=== PATIENT | male | born 1990 | race Caucasian/White ===

== ENCOUNTER 2020-01-31 10:17 | Inpatient (IN) | payer SELFPAY ==
[2020-01-31] VITALS (13 sets, daily range): BP systolic 134–159; BP diastolic 84–105
[~2020-01-31] VITALS: Ht 180.3 cm; Wt 101.0 kg
[2020-01-31] MEDS ORDERED: fentaNYL/PF 50MCG/1 ML 2ML syringe IV ONE (10:30)
[2020-01-31] MEDS ORDERED: morphine 4 MG/ML inj SYRINge IV ONE ×2 (10:40→11:25)
[2020-01-31 11:34] LABS: BASOPHILS % (AUTO) 0.4 % (0-1); EOSINOPHILS % (AUTO) 0.1 % (0-6); HEMATOCRIT 44.8 % (42.0-52.0); HEMOGLOBIN 15.4 g/dl (14.0-17.9); LYMPHOCYTES # (AUTO) 0.6 X10'3 (1.1-4.8); LYMPHOCYTES % (AUTO) 7.1 % (21-51); MEAN CORPUSCULAR HGB CONC 34.4 g/dL (33.0-36.5); MEAN CORPUSCULAR VOLUME 90.2 FL (78-98); MEAN PLATELET VOLUME 7.7 FL (7.4-10.4); MONOCYTES # (AUTO) 0.3 X10'3 (0-0.9); MONOCYTES % (AUTO) 4.2 % (2-12); NEUTROPHILS # (AUTO) 7.3 X10'3 (1.8-7.7); NEUTROPHILS % (AUTO) 88.2 % (42-75); PLATELET COUNT 243 X10'3 (140-440); RED BLOOD COUNT 4.96 X10'6 (4.70-6.10); RED CELL DISTRIBUTION WIDTH 13.1 % (11.5-14.5); WHITE BLOOD COUNT 8.3 X10'3 (4.5-11.0)
[2020-01-31 11:50] LABS: ALANINE AMINOTRANSFERASE 49 U/L (12-78); ALBUMIN/GLOBULIN RATIO 0.8 (1.1-1.5); ALKALINE PHOSPHATASE 90 IU/L (46-116); ANION GAP 14 (8-16); ASPARTATE AMINO TRANSFERASE 33 U/L (10-37); BILIRUBIN,TOTAL 0.4 MG/DL (0.1-1.0); BLOOD UREA NITROGEN 20 MG/DL (7-18); BUN/CREATININE RATIO 19.2 (5.4-32.0); CALCIUM 9.2 MG/DL (8.5-10.1); CHLORIDE 102 MMOL/L (99-107); CREATININE 1.04 MG/DL (0.60-1.10); GLUCOSE 131 MG/DL (70-104); POTASSIUM 3.7 MMOL/L (3.5-5.1); SODIUM 136 MMOL/L (135-145); TOTAL CARBON DIOXIDE 19.9 MMOL/L (24-32); TOTAL PROTEIN 9.2 G/DL (6.4-8.2); eGFR 85 ML/MIN
[2020-01-31] MEDS ORDERED: HYDROmorphone 1 mg/ml syringe IV ONE (11:50)
[2020-01-31] MEDS ORDERED: ipratropium/albuterol 3ml nebule NEB PRN (12:00)
[2020-01-31] MEDS ORDERED: potassium Cl 20 mEq SR tablet PO PRN ×2 (12:00)
[2020-01-31] MEDS ORDERED: HYDROmorphone inj. 0.5 MG/0.5 ML DISP.SYRIN IV PRN ×2 (12:00→16:25)
[2020-01-31] MEDS ORDERED: magnesium 4gm in 100ml NS 100 ML IV PRN (12:00)
[2020-01-31] MEDS ORDERED: acetaminophen 325mg tablet PO PRN ×2 (12:00→16:25)
[2020-01-31] MEDS ORDERED: magnesium 2GM in 50ml NS 50 ML IV PRN (12:00)
[2020-01-31] MEDS ORDERED: mag hydrox/Alum hydrox/simeth 30ml oral suspension PO PRN (12:00)
[2020-01-31] MEDS ORDERED: magnesium hydroxide 30ml (MOM) UD suspension PO PRN ×2 (12:00→16:25)
[2020-01-31] MEDS ORDERED: ondansetron/PF 4mg/2ml inj IV PRN ×3 (12:00→16:25)
[2020-01-31] MEDS ORDERED: potassium CL 10mEq/100ml bag 100 ML IV PRN ×2 (12:00)
[2020-01-31] MEDS ORDERED: oxyCODONE IR 5mg (immed. release) tablet PO PRN ×2 (12:00→16:25)
[2020-01-31] MEDS ORDERED: proCHLORperazine 10 MG/2 ml inj IV PRN (12:55)
[2020-01-31] MEDS ORDERED: meperidine/PF 25mg/ml syringe IV PRN ×3 (12:55)
[2020-01-31] MEDS ORDERED: morphine 4 MG/ML inj SYRINge IV PRN (12:55)
[2020-01-31] MEDS ORDERED: ringers solution, lacted 1,000 ML IV SCH (12:55)
[2020-01-31] MEDS ORDERED: morphine 2 MG/ML inj. syringe IV PRN (12:55)
[2020-01-31] MEDS ORDERED: midazolam 2 mg/2 ml injection ONE (13:18)
[2020-01-31] MEDS ORDERED: fentaNYL /PF 50mcg/ml 5ml ampule ONE (13:18)
[2020-01-31] MEDS ORDERED: propofol inj 20 ML IV ONE (13:20)
[2020-01-31] MEDS ORDERED: LIDOcaine 2% (20mg/ml) 5ml vial ONE (13:20)
[2020-01-31] MEDS ORDERED: rocuronium 10mg/ml inj IV ONE (13:20)
[2020-01-31] MEDS ORDERED: ROPIVAcaine 0.5% (5mg/ml) 30ml vial ONE (16:11)
--- NOTE | 2020-01-31 16:18 | NUR ---
ARRIVED IN PACU VIA BED FROM THE OR WITH O2 INPLACE. DR VALERA WITH PT, REPORT RECEIVED. VS STABLE. R TOES WARM AND PINK. ICE AND ELEVATION TO RLE. PT ASLEEP
[2020-01-31] MEDS ORDERED: meperidine/PF 25mg/ml syringe ONE (16:20)
[2020-01-31] MEDS ORDERED: bisacodyl 10mg suppository rectal RC PRN (16:25)
[2020-01-31] MEDS ORDERED: HYDROmorphone 1 mg/ml syringe IV PRN (16:25)
[2020-01-31] MEDS ORDERED: diphenhydrAMINE 25mg capsule PO PRN ×2 (16:25)
--- NOTE | 2020-01-31 17:03 | NUR ---
PT TO ORTHO. AWAKE AND ALERT. NO PAIN. VS STABLE. TELE ON
--- NOTE | 2020-01-31 18:39 | NUR ---
Problems reprioritized. Patient report given, questions answered & plan of care reviewed with Delilah Horn RN.
[2020-01-31] MEDS ORDERED: K and/or MAG REPLACEMENT MC SCH (20:00)
[2020-01-31] MEDS ORDERED: vancomycin/NS 1 GM ADD-VANTAGE 250 ML IV SCH (20:00)
[2020-01-31] MEDS: gabapentin 300mg capsule PO SCH (20:42)
[2020-01-31] MEDS: enoxaparin 40mg/0.4ml syringe SQ SCH (20:43)
[2020-01-31] MEDS: acetaminophen 325mg tablet PO SCH (20:43)
[2020-01-31] MEDS: potassium cl 20mEq in 1/2 NS 1,000 ML IV SCH (20:45)
[2020-01-31] MEDS: sennosides 8.6mg tablet PO SCH (20:45)
[2020-01-31] MEDS: oxyCODONE IR 5mg (immed. release) tablet PO PRN (20:47)
[2020-01-31] MEDS: temazepam 15mg capsule PO PRN (22:24)
[2020-02-01] MEDS: ceFAZolin 1GM/D5W- ADD-VANTAGE 50 ML IV SCH ×2 (00:13→07:44)
[2020-02-01] MEDS: dronabinol 2.5mg capsule PO PRN ×3 (00:14→15:35)
[2020-02-01] MEDS: potassium cl 20mEq in 1/2 NS 1,000 ML IV SCH ×3 (00:25→21:33)
[2020-02-01] MEDS: acetaminophen 325mg tablet PO SCH ×4 (01:56→21:11)
--- NOTE | 2020-02-01 01:56 | NUR ---
Patient states his pain is well controlled at this time and refuses Tylenol as ordered. Educated he is able to have PRN pain medication if pain increases. Patient verbalized understanding, call light within reach.
[2020-02-01 02:00] VITALS: BP 125/72
[2020-02-01] MEDS ORDERED: NO HOME MEDS (02:00)
[2020-02-01 05:54] LABS: BASOPHILS % (AUTO) 0.1 % (0-1); EOSINOPHILS % (AUTO) 0 % (0-6); HEMATOCRIT 38.8 % (42.0-52.0); HEMOGLOBIN 13.3 g/dl (14.0-17.9); LYMPHOCYTES % (AUTO) 14.4 % (21-51); MEAN CORPUSCULAR HEMOGLOBIN 31.2 PG (27.0-31.0); MEAN CORPUSCULAR HGB CONC 34.3 g/dL (33.0-36.5); MEAN CORPUSCULAR VOLUME 91.1 FL (78-98); MEAN PLATELET VOLUME 7.8 FL (7.4-10.4); MONOCYTES # (AUTO) 0.7 X10'3 (0-0.9); MONOCYTES % (AUTO) 9.4 % (2-12); NEUTROPHILS # (AUTO) 5.4 X10'3 (1.8-7.7); NEUTROPHILS % (AUTO) 76.1 % (42-75); PLATELET COUNT 197 X10'3 (140-440); RED BLOOD COUNT 4.26 X10'6 (4.70-6.10); RED CELL DISTRIBUTION WIDTH 13.4 % (11.5-14.5); WHITE BLOOD COUNT 7.1 X10'3 (4.5-11.0)
[2020-02-01 06:00] VITALS: BP 121/81
--- NOTE | 2020-02-01 06:00 | NUR ---
Patient in room ORTHO 4022. I have received report from YAYO Mazariegos and had the opportunity to ask questions and assume patient care.
[2020-02-01 06:21] LABS: ALANINE AMINOTRANSFERASE 37 U/L (12-78); ALBUMIN 3.4 G/DL (3.4-5.0); ALBUMIN/GLOBULIN RATIO 0.7 (1.1-1.5); ALKALINE PHOSPHATASE 71 IU/L (46-116); ANION GAP 8 (8-16); ASPARTATE AMINO TRANSFERASE 35 U/L (10-37); BILIRUBIN,TOTAL 0.5 MG/DL (0.1-1.0); BLOOD UREA NITROGEN 12 MG/DL (7-18); CALCIUM 9.2 MG/DL (8.5-10.1); CHLORIDE 103 MMOL/L (99-107); CREATININE 0.92 MG/DL (0.60-1.10); GLUCOSE 100 MG/DL (70-104); MAGNESIUM 1.9 MG/DL (1.5-2.4); POTASSIUM 3.9 MMOL/L (3.5-5.1); SODIUM 136 MMOL/L (135-145); TOTAL CARBON DIOXIDE 25.1 MMOL/L (24-32); eGFR > 90 ML/MIN
[2020-02-01] MEDS: oxyCODONE IR 5mg (immed. release) tablet PO PRN ×4 (06:42→19:03)
[2020-02-01] MEDS: gabapentin 300mg capsule PO SCH ×3 (07:44→21:05)
[2020-02-01] MEDS ORDERED: acetaminophen 325mg tablet PO PRN (08:37)
[2020-02-01 10:03] VITALS: BP 133/82
--- NOTE | 2020-02-01 13:15 | NUR ---
Pt's girlfriend at bedside.
[2020-02-01 14:00] VITALS: BP 166/96
--- NOTE | 2020-02-01 14:15 | NUR ---
Pt.'s visitor is upset pt cannot get more pain meds. Dr. Hernandez will not prescribe any more than what is already prescribed. Pt.'s visitor called the ER doctor, and is now requesting for a hospitalist.
[2020-02-01] MEDS: ketorolac trometh. 30mg/ml inj. IV SCH ×2 (15:31→21:05)
--- NOTE | 2020-02-01 16:33 | NUR ---
Dr. Hernandez into see patient, Flexeril added. Asked and educated the girlfriend on the visiting hours and policy, she stated "was not going to leave until he is under control" Charge notified and reeducated visitor. Late [id number]: Dilaudid, gabapentin and Tylenol given to patient, patient wanted more medication, 10/10 pain. I contacted the Ortho physician regarding any extra pain medication. No new orders, while educating the girlfriend and patient that "we will give the pain medication when it is due, so we could build a trough" I was walking out of the room and she spoke to her phone "Yodit call Dr. Peralta" I went to the nurses station and paged Dr. Horton the hopitalist. Spoke with my truck supervisor about this, Dr. Horton came up explained the situation. Dr. Horton spoke with Dr. Guzman. I went in with Dr. Horton, he increased dilaudid, and added Toradol after speaking with Dr. Hernandez. Patient was then given his scheduled medication oxycodone, Toradol and Miranol.
[2020-02-01] MEDS ORDERED: cyclobenzaprine 10mg tablet PO PRN (16:40)
--- NOTE | 2020-02-01 17:00 | NUR ---
Pt has calmed down and girlfriend left for the day.
--- NOTE | 2020-02-01 17:15 | NUR ---
Pt. states pain level 7.
--- NOTE | 2020-02-01 17:57 | NUR ---
patient girlfriend left at 1720 after being educated regarding policy and ignoring it. Once gone patient not in position, groaning in pain. Patient is up sitting, texting on phone, no signs of distress.
--- NOTE | 2020-02-01 18:15 | NUR ---
Problems reprioritized. Patient report given, questions answered & plan of care reviewed with YAYO Maurice.
--- NOTE | 2020-02-01 18:22 | NUR ---
Problems reprioritized. Patient report given, questions answered & plan of care reviewed with Kaylene ZEE. PAGER ID: [phone] MESSAGE: [id number] doesn't want the wound vac changed for a week. Pati [phone]
[2020-02-01 18:23] VITALS: BP 130/77
--- NOTE | 2020-02-01 18:32 | NUR ---
Student documentation: I have reviewed and agree with all interventions, assessments performed and documented by Traci ZEE. Student Medication Administration: For this medication-pass time frame, all medication were reviewed, dispensed, administered and documented per hospital policy by TRACI ZEE.
[2020-02-01] MEDS: nicotine 21mg patch - 24 hr TD SCH (20:00)
[2020-02-01] MEDS: temazepam 15mg capsule PO PRN (21:04)
[2020-02-01] MEDS: sennosides 8.6mg tablet PO SCH (21:05)
[2020-02-01] MEDS: enoxaparin 40mg/0.4ml syringe SQ SCH (21:06)
[2020-02-01 22:00] VITALS: BP 127/80
[2020-02-02] MEDS: potassium cl 20mEq in 1/2 NS 1,000 ML IV SCH ×2 (00:25→08:25)
[2020-02-02] MEDS: ketorolac trometh. 30mg/ml inj. IV SCH ×4 (02:00→20:13)
[2020-02-02] MEDS: acetaminophen 325mg tablet PO SCH ×3 (02:00→13:36)
[2020-02-02] MEDS: oxyCODONE IR 5mg (immed. release) tablet PO PRN ×4 (05:03→17:05)
[2020-02-02 06:00] VITALS: BP 135/86
--- NOTE | 2020-02-02 06:14 | NUR ---
REPORT GIVEN TO RISHI ZEE Addendum: 02/02/20 at 0615 by Kaylene Song RN REPORT GIVEN TO EPIFANIO ZEE
[2020-02-02 06:25] LABS: BASOPHILS % (AUTO) 0.1 % (0-1); EOSINOPHILS % (AUTO) 0.2 % (0-6); HEMATOCRIT 36.7 % (42.0-52.0); HEMOGLOBIN 12.4 g/dl (14.0-17.9); LYMPHOCYTES # (AUTO) 0.8 X10'3 (1.1-4.8); LYMPHOCYTES % (AUTO) 12.7 % (21-51); MEAN CORPUSCULAR HEMOGLOBIN 30.9 PG (27.0-31.0); MEAN CORPUSCULAR HGB CONC 33.8 g/dL (33.0-36.5); MEAN CORPUSCULAR VOLUME 91.3 FL (78-98); MEAN PLATELET VOLUME 7.8 FL (7.4-10.4); MONOCYTES # (AUTO) 0.4 X10'3 (0-0.9); MONOCYTES % (AUTO) 5.6 % (2-12); NEUTROPHILS # (AUTO) 5.1 X10'3 (1.8-7.7); NEUTROPHILS % (AUTO) 81.4 % (42-75); PLATELET COUNT 186 X10'3 (140-440); RED BLOOD COUNT 4.02 X10'6 (4.70-6.10); RED CELL DISTRIBUTION WIDTH 13.5 % (11.5-14.5); WHITE BLOOD COUNT 6.3 X10'3 (4.5-11.0)
--- NOTE | 2020-02-02 06:38 | NUR ---
Patient in room ORTHO 4022. I have received report from Kaylene from O/N and had the opportunity to ask questions and assume patient care.
[2020-02-02 06:50] LABS: ALANINE AMINOTRANSFERASE 30 U/L (12-78); ALBUMIN 3.2 G/DL (3.4-5.0); ALBUMIN/GLOBULIN RATIO 0.7 (1.1-1.5); ALKALINE PHOSPHATASE 67 IU/L (46-116); ANION GAP 8 (8-16); ASPARTATE AMINO TRANSFERASE 35 U/L (10-37); BILIRUBIN,TOTAL 0.4 MG/DL (0.1-1.0); BLOOD UREA NITROGEN 12 MG/DL (7-18); BUN/CREATININE RATIO 13.2 (5.4-32.0); CALCIUM 8.7 MG/DL (8.5-10.1); CHLORIDE 104 MMOL/L (99-107); CREATININE 0.91 MG/DL (0.60-1.10); GLUCOSE 125 MG/DL (70-104); MAGNESIUM 1.9 MG/DL (1.5-2.4); POTASSIUM 3.7 MMOL/L (3.5-5.1); SODIUM 139 MMOL/L (135-145); TOTAL CARBON DIOXIDE 27.2 MMOL/L (24-32); TOTAL PROTEIN 7.7 G/DL (6.4-8.2); eGFR > 90 ML/MIN
[2020-02-02] MEDS: HYDROmorphone 1 mg/ml syringe IV PRN (06:53)
[2020-02-02] MEDS: gabapentin 300mg capsule PO SCH ×3 (07:28→20:13)
[2020-02-02] MEDS: nicotine 21mg patch - 24 hr TD SCH (07:31)
[2020-02-02 10:00] VITALS: BP 129/81
[2020-02-02] MEDS ORDERED: acetaminophen 325mg tablet PO PRN (16:25)
[2020-02-02 18:00] VITALS: BP 138/82
--- NOTE | 2020-02-02 18:15 | NUR ---
Problems reprioritized. Patient report given, questions answered & plan of care reviewed with
--- NOTE | 2020-02-02 18:30 | NUR ---
Patient in room ORTHO 4017. I have received report from Tristian ZEE and had the opportunity to ask questions and assume patient care.
[2020-02-02] MEDS: temazepam 15mg capsule PO PRN (20:13)
[2020-02-02] MEDS: enoxaparin 40mg/0.4ml syringe SQ SCH (20:14)
[2020-02-02] MEDS: sennosides 8.6mg tablet PO SCH (20:14)
[2020-02-02 22:00] VITALS: BP 131/76
[2020-02-03] MEDS: oxyCODONE IR 5mg (immed. release) tablet PO PRN ×5 (02:28→20:06)
[2020-02-03] MEDS: ketorolac trometh. 30mg/ml inj. IV SCH ×4 (02:28→20:04)
--- NOTE | 2020-02-03 06:00 | NUR ---
Patient in room ORTHO 4017. I have received report from yas elena and had the opportunity to ask questions and assume patient care.
[2020-02-03 06:10] VITALS: BP 126/81
[2020-02-03 06:24] LABS: ALANINE AMINOTRANSFERASE 28 U/L (12-78); ALBUMIN 3.2 G/DL (3.4-5.0); ALBUMIN/GLOBULIN RATIO 0.7 (1.1-1.5); ALKALINE PHOSPHATASE 63 IU/L (46-116); ANION GAP 5 (8-16); ASPARTATE AMINO TRANSFERASE 35 U/L (10-37); BILIRUBIN,TOTAL 0.5 MG/DL (0.1-1.0); BLOOD UREA NITROGEN 14 MG/DL (7-18); BUN/CREATININE RATIO 16.5 (5.4-32.0); CALCIUM 8.8 MG/DL (8.5-10.1); CHLORIDE 102 MMOL/L (99-107); CREATININE 0.85 MG/DL (0.60-1.10); GLUCOSE 96 MG/DL (70-104); POTASSIUM 3.8 MMOL/L (3.5-5.1); SODIUM 137 MMOL/L (135-145); TOTAL PROTEIN 8.1 G/DL (6.4-8.2); eGFR > 90 ML/MIN
--- NOTE | 2020-02-03 06:30 | NUR ---
Patient in room ORTHO 4017. I have received report from Zora ZEE and had the opportunity to ask questions and assume patient care. Addendum: 02/03/20 at 0650 by Renetta Patino RN report from yvon
[2020-02-03 06:40] LABS: BASOPHILS % (AUTO) 0.4 % (0-1); EOSINOPHILS % (AUTO) 0.3 % (0-6); HEMATOCRIT 36.6 % (42.0-52.0); HEMOGLOBIN 12.5 g/dl (14.0-17.9); LYMPHOCYTES # (AUTO) 0.7 X10'3 (1.1-4.8); LYMPHOCYTES % (AUTO) 19.2 % (21-51); MEAN CORPUSCULAR HEMOGLOBIN 31.4 PG (27.0-31.0); MEAN CORPUSCULAR HGB CONC 34.3 g/dL (33.0-36.5); MEAN CORPUSCULAR VOLUME 91.5 FL (78-98); MEAN PLATELET VOLUME 7.5 FL (7.4-10.4); MONOCYTES # (AUTO) 0.3 X10'3 (0-0.9); MONOCYTES % (AUTO) 8.3 % (2-12); NEUTROPHILS # (AUTO) 2.7 X10'3 (1.8-7.7); NEUTROPHILS % (AUTO) 71.8 % (42-75); PLATELET COUNT 197 X10'3 (140-440); RED BLOOD COUNT 3.99 X10'6 (4.70-6.10); RED CELL DISTRIBUTION WIDTH 13.6 % (11.5-14.5); WHITE BLOOD COUNT 3.7 X10'3 (4.5-11.0)
[2020-02-03] MEDS: nicotine 21mg patch - 24 hr TD SCH (08:00)
[2020-02-03] MEDS: gabapentin 300mg capsule PO SCH ×3 (08:37→20:05)
[2020-02-03] MEDS: dronabinol 2.5mg capsule PO PRN ×2 (08:54→21:56)
[2020-02-03 10:00] VITALS: BP 132/79
[2020-02-03 14:00] VITALS: BP 131/76
--- NOTE | 2020-02-03 14:54 | NUR ---
WOUND INFECTION EDUCATION PROVIDED BY WOUND CARE 1. Patient instructed to call their primary doctor, or go the ED immediately if any of the following symptoms occur: * Increased pain in wound * Increase in drainage from the wound * Redness in the skin surrounding the wound * Warmth in the skin surrounding the wound * Bleeding from the wound * Temperature of 101 or greater 2. If any of these occur while in the hospital tell a nurse immediately. WOUND VAC EDUCATION PROVIDED BY WOUND CARE 1. Patient instructed to call the Wound Center or their Home Health Agency immediately if: * They notice a change in the color or amount of the fluid in the canister. * Their wound looks more red than usual or has a foul smell. * The skin around their wound looks reddened or irritated. * The dressing feels loose or appears to be loose. * They experience any increase or changes in their pain. * The alarm will not turn off. 2. Patient instructed that they should not be disconnected from suction for more than 2 hours at a time. * If they are not able to get the suction back on, they need to remove the dressing and take all of the foam out of the wound. * Then moisten sterile gauze with normal saline and place on/in the wound. * Change the dressing once a day until arrangements have been made to replace the wound vac dressing. 3. Patient instructed to turn the wound vac machine OFF and call 911 or go to the ED immediately if their canister fills rapidly with blood. 4. If any of these occur while in the hospital tell a nurse immediately. Addendum: 02/03/20 at 1455 by Susan Bell RN Amended: Links added.
[2020-02-03] MEDS: HYDROmorphone 1 mg/ml syringe IV PRN (15:34)
--- NOTE | 2020-02-03 16:27 | NUR ---
I spoke to Dr. Hernandez earlier and removed wound vacs per his order. I had ortho thech help remove splint. We removed the dressings and put xero-form, tefla, gauze. And orthopaedic surgeon bill applied another splint. Pain medications provided for patient during this procedure.
[2020-02-03] MEDS ORDERED: acetaminophen 325mg tablet PO PRN (16:30)
[2020-02-03 18:00] VITALS: BP 137/83
--- NOTE | 2020-02-03 18:22 | NUR ---
Problems reprioritized. Patient report given, questions answered & plan of care reviewed with RODRIGUE ZEE.
--- NOTE | 2020-02-03 18:24 | NUR ---
Problems reprioritized. Patient report given, questions answered & plan of care reviewed with Delilah.
[2020-02-03] MEDS: sennosides 8.6mg tablet PO SCH (20:05)
[2020-02-03] MEDS: celeCOXIB 100mg capsule PO SCH (20:05)
[2020-02-03] MEDS: enoxaparin 40mg/0.4ml syringe SQ SCH (20:05)
[2020-02-03] MEDS: temazepam 15mg capsule PO PRN (21:56)
[2020-02-03 22:00] VITALS: BP 122/78
[2020-02-04] MEDS: oxyCODONE IR 5mg (immed. release) tablet PO PRN ×2 (00:09→05:24)
[2020-02-04] MEDS: ketorolac trometh. 30mg/ml inj. IV SCH ×2 (02:09→07:58)
--- NOTE | 2020-02-04 06:12 | NUR ---
Report given to Lesli ZEE.
[2020-02-04 06:23] VITALS: BP 126/90
--- NOTE | 2020-02-04 06:24 | NUR ---
Received patient report from Delilah ZEE
[2020-02-04] MEDS: gabapentin 300mg capsule PO SCH (07:57)
[2020-02-04] MEDS: celeCOXIB 100mg capsule PO SCH (08:00)
[2020-02-04] MEDS: nicotine 21mg patch - 24 hr TD SCH (08:00)
[2020-02-04 09:35] VITALS: BP 127/86
--- NOTE | 2020-02-04 09:46 | NUR ---
celebrex not given because patient is already on torodol
[2020-02-04 11:04] LABS: BASOPHILS % (AUTO) 0.4 % (0-1); EOSINOPHILS % (AUTO) 0.5 % (0-6); HEMATOCRIT 38.4 % (42.0-52.0); HEMOGLOBIN 13.3 g/dl (14.0-17.9); LYMPHOCYTES # (AUTO) 0.6 X10'3 (1.1-4.8); LYMPHOCYTES % (AUTO) 14.7 % (21-51); MEAN CORPUSCULAR HEMOGLOBIN 31.6 PG (27.0-31.0); MEAN CORPUSCULAR HGB CONC 34.5 g/dL (33.0-36.5); MEAN CORPUSCULAR VOLUME 91.6 FL (78-98); MEAN PLATELET VOLUME 7.4 FL (7.4-10.4); MONOCYTES # (AUTO) 0.3 X10'3 (0-0.9); MONOCYTES % (AUTO) 8.3 % (2-12); NEUTROPHILS % (AUTO) 76.1 % (42-75); PLATELET COUNT 237 X10'3 (140-440); RED BLOOD COUNT 4.19 X10'6 (4.70-6.10); RED CELL DISTRIBUTION WIDTH 13.1 % (11.5-14.5)
[2020-02-04 11:16] LABS: ALANINE AMINOTRANSFERASE 43 U/L (12-78); ALBUMIN 3.2 G/DL (3.4-5.0); ALBUMIN/GLOBULIN RATIO 0.6 (1.1-1.5); ALKALINE PHOSPHATASE 67 IU/L (46-116); ANION GAP 4 (8-16); ASPARTATE AMINO TRANSFERASE 43 U/L (10-37); BILIRUBIN,TOTAL 0.3 MG/DL (0.1-1.0); BLOOD UREA NITROGEN 22 MG/DL (7-18); BUN/CREATININE RATIO 22.4 (5.4-32.0); CALCIUM 9.1 MG/DL (8.5-10.1); CHLORIDE 102 MMOL/L (99-107); CREATININE 0.98 MG/DL (0.60-1.10); GLUCOSE 89 MG/DL (70-104); MAGNESIUM 2.6 MG/DL (1.5-2.4); POTASSIUM 4.2 MMOL/L (3.5-5.1); SODIUM 135 MMOL/L (135-145); TOTAL CARBON DIOXIDE 29.2 MMOL/L (24-32); TOTAL PROTEIN 8.4 G/DL (6.4-8.2); eGFR > 90 ML/MIN
[2020-02-04] MEDS ORDERED: ASPI-1264 PO ×2 (12:12→12:25)
--- NOTE | 2020-02-04 12:42 | NUR ---
1237 DC time. Patient discharged and taught all dc instructions. Patient will follow up in wound care clinic here on Thursday. Patient is to follow up with Dr. Hernandez in wound care Clinic and 7 to 10 days at his office, patient told this. Aspirin called into [facility].
== END 2020-02-04 12:30 | disposition home or self-care (01) | DRG 493 ==
LOC: ER 10:19 → ED HOLD 11:56 → ORTHO 4S 17:00
PROVIDERS: ADMIT Family Medicine; ATTEND Family Medicine
PROC: 0KNS0ZZ Release Right Lower Leg Muscle, Open Approach (ICD-10-PCS; 2020-01-31)
PROC: 0KNS0ZZ Release Right Lower Leg Muscle, Open Approach (ICD-10-PCS; 2020-01-31)
PROC: 0KNS0ZZ Release Right Lower Leg Muscle, Open Approach (ICD-10-PCS; 2020-01-31)
PROC: 0KNS0ZZ Release Right Lower Leg Muscle, Open Approach (ICD-10-PCS; 2020-01-31)
PROC: 3E0T3BZ Introduction of Anesthetic Agent into Peripheral Nerves and Plexi, Percutaneous Approach (ICD-10-PCS; 2020-01-31)
PROC: 0QSG06Z Reposition Right Tibia with Intramedullary Internal Fixation Device, Open Approach (ICD-10-PCS; principal; 2020-01-31 13:24)
DX: S82.221A Displaced transverse fracture of shaft of right tibia, initial encounter for closed fracture (principal); D62 Acute posthemorrhagic anemia; T79.A21A Traumatic compartment syndrome of right lower extremity, initial encounter; S82.421A Displaced transverse fracture of shaft of right fibula, initial encounter for closed fracture; W01.0XXA Fall on same level from slipping, tripping and stumbling without subsequent striking against object, initial encounter; F12.90 Cannabis use, unspecified, uncomplicated; F17.210 Nicotine dependence, cigarettes, uncomplicated; F41.9 Anxiety disorder, unspecified; Z82.49 Family history of ischemic heart disease and other diseases of the circulatory system; Z83.3 Family history of diabetes mellitus; Y93.39 Activity, other involving climbing, rappelling and jumping off; Y92.89 Other specified places as the place of occurrence of the external cause; Y99.8 Other external cause status; Z71.6 Tobacco abuse counseling
CPT/HCPCS: 36415; 73590; 76000; 80053; 83735; 85025; 87081; 93005; 94760; 96374; 96375; 97116; 97161; 97530; 97535; 99285; G0378; J0690; J1170; J1650; J1885; J2001; J2175; J2250; J2270; J2704; J2795; J3010; J3370; J3480; Q0167

== ENCOUNTER 2020-02-08 08:44 | Outpatient (CLI) | payer MEDICAID ==
[~2020-02-08 08:44] MED LIST: ASPI-1264 PO
[2020-02-14] MEDS ORDERED: HYDR-4353 PO (10:43)
== END 2020-02-08 23:59 | disposition home or self-care (01) ==
LOC: WOUND CARE 08:44
PROVIDERS: ATTEND Nurse Practitioner
DX: T81.89XA Other complications of procedures, not elsewhere classified, initial encounter (principal); L97.212 Non-pressure chronic ulcer of right calf with fat layer exposed; Q24.9 Congenital malformation of heart, unspecified; F17.210 Nicotine dependence, cigarettes, uncomplicated; F41.9 Anxiety disorder, unspecified; F12.10 Cannabis abuse, uncomplicated; Z79.899 Other long term (current) drug therapy; Z79.82 Long term (current) use of aspirin; Y92.238 Other place in hospital as the place of occurrence of the external cause; Y83.8 Other surgical procedures as the cause of abnormal reaction of the patient, or of later complication, without mention of misadventure at the time of the procedure
CPT/HCPCS: G0463

== ENCOUNTER 2020-02-15 10:09 | Day surgery (SDC) | payer MEDICAID, OTHER ==
[2020-02-15] VITALS (8 sets, daily range): BP systolic 120–142; BP diastolic 66–90
[~2020-02-15] VITALS: Ht 180.3 cm; Wt 102.0 kg
[~2020-02-15 10:09] MED LIST changes: -ASPI-1264 PO; +HYDR-4353 PO; +famotidine 20mg tablet PO ONE; +ringers solution, lacted 1,000 ML IV SCH
[2020-02-15] MEDS ORDERED: cefazolin/dext.iso 2,000MG/50 ML BAG IV ONE (13:08)
[2020-02-15] MEDS ORDERED: sevoflurane 250ml liquid IH ONE (13:08)
[2020-02-15] MEDS ORDERED: fentaNYL/PF 50MCG/1 ML 2ML syringe ONE ×2 (13:08→13:44)
[2020-02-15] MEDS ORDERED: midazolam 2 mg/2 ml injection ONE (13:10)
[2020-02-15] MEDS ORDERED: propofol inj 20 ML IV ONE (13:10)
--- NOTE | 2020-02-15 14:05 | NUR ---
Received from OR via JONATHAN, accompanied by Anesthesiologist JACKSON and report given by Anesthesiolgist. PT DROWSY, OXYGENATING WELL ON 10 LPM O2 VIA MASK, NO RESP DISTRESS NOTED. DENIES NAUSEA, C/O MILD/MOD INCISIONAL PAIN. MEDICATED PRN, SEE EMAR. ISLAND DSG TO MEDIAL AND LATERAL R CALF, SM [facility]LAND DSG JUST UNDER R KNEE WITH SANG DRAINAGE. REINFORCED AND WRAPPED WITH JERED BANDAGE BY PARTNER [employer]IANCE MANAGER. RLE SLIGHTLY SWOLLEN, CMS CHECK WNL, PEDAL PULSES PALP. SPOKE WITH BERNIE IN WOUND CLINIC RE: PT DRESSING CHANGES AND APPT TIMES. THEY WILL CALL PT WITH DIRECTIONS. VSS.
[2020-02-15] MEDS ORDERED: morphine 4 MG/ML inj SYRINge IV PRN (14:10)
[2020-02-15] MEDS ORDERED: morphine 2 MG/ML inj. syringe IV PRN (14:10)
[2020-02-15] MEDS ORDERED: proCHLORperazine 10 MG/2 ml inj IV PRN (14:10)
[2020-02-15] MEDS ORDERED: ondansetron/PF 4mg/2ml inj IV PRN (14:10)
[2020-02-15] MEDS ORDERED: ringers solution, lacted 1,000 ML IV SCH (14:10)
[2020-02-15] MEDS ORDERED: meperidine/PF 25mg/ml syringe IV PRN ×2 (14:10)
[2020-02-15] MEDS: meperidine/PF 25mg/ml syringe IV PRN ×2 (14:18→14:42)
[2020-02-15] MEDS ORDERED: traMADol 50MG tablet PO PRN ×2 (14:40→14:45)
--- NOTE | 2020-02-15 15:30 | NUR ---
PT WAS GIVEN 2 DOSES OF DEMEROL AND TRAMADOL DURING PACU STAY, PAIN LEVEL TRENDING DOWN. VOIDED VIA URINAL. TOLERATING PO FLUIDS WELL. VSS. DC INSTRUCTIONS EXPLAINED TO PT, HE VERBALIZED UNDERSTANDING. TRAMADOL WAS CALLED INTO PT PHARMACY. DCD IN STABLE CONDITION, TAKEN TO CAR VIA WC.
== END 2020-02-15 15:30 | disposition home or self-care (01) ==
LOC: PAS 10:09
PROVIDERS: ATTEND Orthopaedic Surgery
DX: Z48.1 Encounter for planned postprocedural wound closure (principal); Z20.828 Contact with and (suspected) exposure to other viral communicable diseases; F17.290 Nicotine dependence, other tobacco product, uncomplicated; F41.9 Anxiety disorder, unspecified; F12.90 Cannabis use, unspecified, uncomplicated; Z79.899 Other long term (current) drug therapy
CPT/HCPCS: 13160; 82948; 87635; A6223; C9803; J2175; J2250; J2704; J3010; J7120; A4618; A7000

== ENCOUNTER → 2020-02-17 | Outpatient (CLI) | payer OTHER ==
[~2020-02-17] MED LIST changes: -famotidine 20mg tablet PO ONE; -ringers solution, lacted 1,000 ML IV SCH
== END | disposition home or self-care (01) ==
LOC: EDSTATUS 13:00 → WOUND CARE 13:11
PROVIDERS: ATTEND Nurse Practitioner
DX: T81.89XA Other complications of procedures, not elsewhere classified, initial encounter (principal); L97.212 Non-pressure chronic ulcer of right calf with fat layer exposed; Q24.9 Congenital malformation of heart, unspecified; F17.210 Nicotine dependence, cigarettes, uncomplicated; F41.9 Anxiety disorder, unspecified; F12.10 Cannabis abuse, uncomplicated; Z79.899 Other long term (current) drug therapy; Y92.238 Other place in hospital as the place of occurrence of the external cause; Y83.8 Other surgical procedures as the cause of abnormal reaction of the patient, or of later complication, without mention of misadventure at the time of the procedure
CPT/HCPCS: G0463

== ENCOUNTER 2020-02-22 13:13 | Outpatient (CLI) | payer OTHER | END 2020-02-22 23:59 | disposition home or self-care (01) | LOC: WOUND CARE 13:13 | PROVIDERS: ATTEND Nurse Practitioner | DX: T81.89XD Other complications of procedures, not elsewhere classified, subsequent encounter (principal); L97.212 Non-pressure chronic ulcer of right calf with fat layer exposed; Q24.9 Congenital malformation of heart, unspecified; F17.210 Nicotine dependence, cigarettes, uncomplicated; F41.9 Anxiety disorder, unspecified; F12.10 Cannabis abuse, uncomplicated; Z79.899 Other long term (current) drug therapy; Z71.6 Tobacco abuse counseling; Y83.8 Other surgical procedures as the cause of abnormal reaction of the patient, or of later complication, without mention of misadventure at the time of the procedure | CPT/HCPCS: G0463 ==

== ENCOUNTER 2020-02-29 11:40 | Outpatient (CLI) | payer OTHER ==
[2020-02-29] MEDS ORDERED: LIDOcaine 2% 5ml jelly ONE (12:03)
== END 2020-02-29 23:59 | disposition home or self-care (01) ==
LOC: WOUND CARE 11:40
PROVIDERS: ATTEND Nurse Practitioner
DX: T81.89XD Other complications of procedures, not elsewhere classified, subsequent encounter (principal); L97.212 Non-pressure chronic ulcer of right calf with fat layer exposed; Q24.9 Congenital malformation of heart, unspecified; F41.9 Anxiety disorder, unspecified; F17.210 Nicotine dependence, cigarettes, uncomplicated; F12.10 Cannabis abuse, uncomplicated; Z79.899 Other long term (current) drug therapy; Z71.6 Tobacco abuse counseling; Y83.8 Other surgical procedures as the cause of abnormal reaction of the patient, or of later complication, without mention of misadventure at the time of the procedure
CPT/HCPCS: 29581; G0463

== ENCOUNTER 2020-03-07 08:05 | Outpatient (CLI) | payer OTHER ==
[2020-03-07] MEDS ORDERED: LIDOcaine 2% 5ml jelly ONE (08:28)
== END 2020-03-07 23:59 | disposition home or self-care (01) ==
LOC: WOUND CARE 08:05
PROVIDERS: ATTEND Nurse Practitioner
DX: T81.89XD Other complications of procedures, not elsewhere classified, subsequent encounter (principal); L97.212 Non-pressure chronic ulcer of right calf with fat layer exposed; Q24.9 Congenital malformation of heart, unspecified; F17.210 Nicotine dependence, cigarettes, uncomplicated; F41.9 Anxiety disorder, unspecified; F12.10 Cannabis abuse, uncomplicated; Z79.899 Other long term (current) drug therapy; Z71.6 Tobacco abuse counseling; Y83.8 Other surgical procedures as the cause of abnormal reaction of the patient, or of later complication, without mention of misadventure at the time of the procedure
CPT/HCPCS: G0463

== ENCOUNTER → 2020-03-28 | Outpatient (CLI) | payer MEDICAID, OTHER | END | disposition home or self-care (01) | LOC: WOUND CARE 12:40 | PROVIDERS: ATTEND Nurse Practitioner Family | DX: T81.89XD Other complications of procedures, not elsewhere classified, subsequent encounter (principal); L97.212 Non-pressure chronic ulcer of right calf with fat layer exposed; Q24.9 Congenital malformation of heart, unspecified; F17.210 Nicotine dependence, cigarettes, uncomplicated; F41.9 Anxiety disorder, unspecified; F12.10 Cannabis abuse, uncomplicated; Z79.899 Other long term (current) drug therapy; Z71.6 Tobacco abuse counseling; Y83.8 Other surgical procedures as the cause of abnormal reaction of the patient, or of later complication, without mention of misadventure at the time of the procedure | CPT/HCPCS: G0463 ==